=== PATIENT | male | born 1950 | race Caucasian/White ===

== ENCOUNTER → 2017-01-18 | Outpatient (CLI) | payer BC, MEDICARE ==
--- NOTE | 2017-01-19 20:50 | SLEEP ---
DATE OF STUDY: 01/18/2017 HOME SLEEP STUDY ATTENDING PHYSICIAN: Dr. Karl Hoffman. The patient is 66 years old, who weighs 165 pounds with a BMI of 24.4. The patient's Saint Anthony score was 7. Home sleep study was performed by [facility]. The total recording time was 646 minutes. During the night study, the patient had 1 central apnea, 142 obstructive apneas and no mixed apneas. There were 43 hypopneas. The patient's apnea-hypopnea index was 17 per hour with a supine index of 24 per hour. Review of nocturnal oximetry study revealed an average oxygen saturation of 94% with the lowest of 82%, 10.5 minutes were spent in oxygen saturation of less than 90%. Mean heart rate was 70 beats per minute. IMPRESSION: 1. Moderate sleep apnea-hypopnea syndrome with an AHI of 17 per hour. 2. Nocturnal hypoxia secondary to obstructive sleep apnea. RECOMMENDATIONS: 1. The patient would benefit from an in-lab CPAP titration study. 2. Alternatively, the patient can be placed on auto titrating CPAP and an average CPAP pressure can be recommended 3. Avoid [employer] depressants. 4. Caution regarding driving until symptoms of sleep apnea resolve with the above recommendations. CHRISSY PEREA MD DR: CASH/dylan JOB#: [id number] / [id number] KARL Box MD
== END | disposition home or self-care (01) ==
LOC: RT 14:23
PROVIDERS: ATTEND Family Medicine
DX: R53.83 Other fatigue (principal); G47.33 Obstructive sleep apnea (adult) (pediatric)
CPT/HCPCS: G0399

== ENCOUNTER → 2019-12-26 | Outpatient (CLI) | payer OTHER, BC ==
[~2019-12-26] MED LIST: AMLO10TA8 PO; DIAZ5TAB4 PO; GADOTERATE 7.5 MMOL/15ML VIAL. IVP ONE; METO50TA4 PO; SILD100T PO
--- NOTE | 2019-12-26 11:37 | KCIC ---
MRI Brain with and without contrast History: Left eye droop off-and-on for 2 to 3 months Technique: Multiplanar, multi sequential pre and postcontrast MR imaging was performed of the brain. Comparison: None Findings: There is no evidence of recent infarct or cytotoxic edema. Ventricular size is proportionate to the sulcal spaces, mild generalized supratentorial involutional change.There is no significant midline shift, intraaxial mass effect, or focal abnormal extra-axial fluid collection. There is minimal T2 and FLAIR hyperintense abnormality of the supratentorial parenchyma bilaterally. There is small focus of volume loss of the posterior body of the corpus callosum without associated other signal change, could be on a developmental basis. Small lentiform focus of signal change of the left frontal temporal scalp laterally 2.1 cm AP by 0.5 cm transverse by 2 cm cc is most likely a lipoma. There is small left parietal developmental venous anomaly. There is no nodular parenchymal or leptomeningeal enhancement. There is preservation of the major intracranial flow-voids at the skull base. The cerebellar tonsils are normal in location. There is no significant abnormality of the pineal gland or pituitary gland. There is likely mucus retention cyst of the inferior right maxillary sinus about 0.9 cm. There is minimal bilateral ethmoid air cell and very minimal left frontal sinus mucosal thickening. There has been lens surgery bilaterally. There is very minimal fluid and thickening of the left mastoid air cells.There is preserved marrow signal of the clivus. Impression: 1. There is minimal T2 and FLAIR hyperintense signal abnormality of the supratentorial parenchyma, nonspecific findings more commonly due to chronic microvascular ischemic disease in a patient this age. Electronically signed by: Solomon Edmond MD (12/26/2019 11:34 AM) [id number]
== END | disposition home or self-care (01) ==
LOC: KCIC MRI 10:00
PROVIDERS: ATTEND Internal Medicine
DX: J34.89 Other specified disorders of nose and nasal sinuses (principal); R29.810 Facial weakness
CPT/HCPCS: 70553; 82565; A9575